=== PATIENT | male | born 1970 | race Caucasian/White ===

== ENCOUNTER 2024-06-14 15:15 | Emergency (ER) | payer BC ==
[2024-06-14 15:28] VITALS: RESP 18
--- NOTE | 2024-06-14 15:29 | ED ---
Wound/Laceration HPI - General Chief Complaint: Wound/Laceration Stated Complaint: Right arm injury Time Seen by Provider: 06/14/24 15:27 Source: patient, EMS, RN notes reviewed Mode of arrival: EMS Limitations: no limitations - History of Present Illness Initial Comments: 53-year-old presented to ER with a chief complaint of a laceration. Patient states he was cleaning his lawnmower and accidentally scraped his right wrist causing a laceration on one of the blades. Tetanus status unknown. He denies any blood thinning medications. He denies any limited range of motion, paresthesias or other injuries. He does report a mild burning sensation to the affected area. No other injuries or complaints. - Related Data Allergies Allergy/AdvReac Type Severity Reaction Status Date / Time adhesive AdvReac Rash/Hives Verified 06/14/24 15:19 Review of Systems ROS Statement: Those systems with pertinent positive or pertinent negative responses have been documented in the HPI. ROS Other: All systems not noted in ROS Statement are negative. Past Medical History Past Medical History: Hyperlipidemia, Hypertension Additional Past Surgical History / Comment(s): History of kidney stones with surgical intervention General Exam Limitations: no limitations General appearance: alert, in no apparent distress Respiratory exam: Present: normal lung sounds bilaterally. Absent: respiratory distress, wheezes, rales, rhonchi, stridor Cardiovascular Exam: Present: regular rate, normal rhythm, normal heart sounds. Absent: systolic murmur, diastolic murmur, rubs, gallop, clicks Extremities exam: Present: normal inspection, full ROM, normal capillary refill, other (2 cm laceration to right wrist overlying radial head. Patient has full active range of motion. Minimal active bleeding. 2+ right radial pulse.). Absent: tenderness, pedal edema, joint swelling, calf tenderness Neurological exam: Present: alert, oriented X3, CN II-XII intact Skin exam: Present: warm, dry, intact, normal color. Absent: rash Course Vital Signs 06/14/24 15:26 Temperature 98.8 F Pulse Rate 60 Respiratory 18 Rate Blood Pressure 160/91 O2 Sat by Pulse 98 Oximetry Procedures - Laceration Laceration #1 Consent Obtained: verbal consent Indication: laceration Site: upper extremity Size (cm): 2 Description: linear Depth: simple, single layer Anesthetic Used: lidocaine 1%, without epi Anesthesia Technique: local infiltration Amount (mls): 3 Pre-repair: wound explored, irrigated extensively, deep structures intact Type of Sutures: nylon Size of Sutures: 5-0 Number of Sutures: 3 Technique: simple, interrupted Patient Tolerated Procedure: well Medical Decision Making - Medical Decision Making Was pt. sent in by a medical professional or institution ([facility], INCIDENT RESPONSE COORDINATOR, urgent care, hospital, or penitentiary...) When possible be specific @ -No Did you speak to anyone other than the patient for history (EMS, parent, family, police, friend...)? What history was obtained from this source @ -No Did you review nursing and triage notes (agree or disagree)? Why? @ -I reviewed and agree with nursing and triage notes Were old charts reviewed (outside hosp., previous admission, EMS record, old EKG, old radiological studies, urgent care reports/EKG's, penitentiary records)? Report findings @ -No old charts were reviewed Differential Diagnosis (chest pain, altered mental status, abdominal pain women, abdominal pain men, vaginal bleeding, weakness, fever, dyspnea, syncope, headache, dizziness, GI bleed, back pain, seizure, CVA, palpatations, mental health, musculoskeletal)? @ -Laceration, abrasion, contusion, avulsion, foreign body this list is not meant to be all-inclusive EKG interpreted by me (3pts min.). @ -None done X-rays interpreted by me (1pt min.). @ -Right wrist x-ray negative for acute osseous process or radiopaque foreign body. CT interpreted by me (1pt min.). @ -None done U/S interpreted by me (1pt. min.). @ -None done What testing was considered but not performed or refused? (CT, X-rays, U/S, labs)? Why? @ -None What meds were considered but not given or refused? Why? @ -None Did you discuss the management of the patient with other professionals (professionals i.e. [employer], INCIDENT RESPONSE COORDINATOR, lab, RT, psych nurse, social security benefits interviewer, motor adjuster, teacher, security officers and guards, sample case porter)? Give summary @ -No Was smoking cessation discussed for >3mins.? @ -No Was critical care preformed (if so, how long)? @ -No Were there social determinants of health that impacted care today? How? (Homelessness, low income, unemployed, alcoholism, drug addiction, transportation, low edu. Level, literacy, decrease access to med. care, long term, rehab)? @ -No Was there de-escalation of care discussed even if they declined (Discuss DNR or withdrawal of care, Hospice)? DNR status @ -No What co-morbidities impacted this encounter? (DM, HTN, Smoking, COPD, CAD, Cancer, CVA, ARF, Chemo, Hep., AIDS, mental health diagnosis, sleep apnea, morbid obesity)? @ -None Was patient admitted / discharged? Hospital course, mention meds given and route, prescriptions, significant lab abnormalities, going to OR and other pertinent info. @ -Discharge. 53-year-old male presented to the ER via EMS with a chief complaint of laceration. History and physical exam completed. Vitals within normal limits. Patient in no signs of acute distress and nontoxic-appearing. Exam remarkable for a 2 cm laceration to right wrist overlying the radial head. No active bleeding. Patient has full active range of motion of digits. X-ray obtained negative for acute osseous process or radiopaque foreign bodies. Tetanus updated. Wound closed, see note above. Suture care discussed. I advised suture removal in 7 to 10 days. Return parameters discussed. Patient discharged in stable condition. Patient verbally expressed understanding agree with care plan. Case discussed with ED attending Dr. Cox. Undiagnosed new problem with uncertain prognosis? @ -No Drug Therapy requiring intensive monitoring for toxicity (Heparin, Nitro, Insulin, Cardizem)? @ -No Were any procedures done? @ -No Diagnosis/symptom? @ -Laceration Acute, or Chronic, or Acute on Chronic? @ -Acute Uncomplicated (without systemic symptoms) or Complicated (systemic symptoms)? @ -Uncomplicated Side effects of treatment? @ -No Exacerbation, Progression, or Severe Exacerbation? @ -No Poses a threat to life or bodily function? How? (Chest pain, USA, MD, pneumonia, PE, COPD, DKA, ARF, appy, cholecystitis, CVA, Diverticulitis, Homicidal, Suicidal, threat to staff... and all critical care pts) @ -No - Radiology Data Radiology results: report reviewed, image reviewed Disposition Clinical Impression: Laceration Disposition: HOME SELF-CARE Condition: Stable Instructions (If sedation given, give patient instructions): Care For Your Stitches (DC) Additional Instructions: Have sutures removed in 7 to 10 days. Keep area clean and dry. Monitor for signs of infection including surrounding redness, drainage or increase in pain and swelling. Return to the ER for any new or worsening concerns. Otherwise follow-up with primary care physician. Is patient prescribed a controlled substance at d/c from ED?: No Referrals: Rich Sifuentes DO [Primary Care Provider] - 1-2 days Time of Disposition: 16:22
--- NOTE | 2024-06-14 15:56 | XR ---
EXAMINATION TYPE: XR wrist complete RT DATE OF EXAM: 06/14/2024 3:34 PM CLINICAL INDICATION: Male, 53 years old with history of laceration; COMPARISON: None TECHNIQUE: XR wrist complete RT; examined in the Frontal, navicular, lateral, and oblique. FINDINGS: No acute osseous pathology, joint dislocation, or joint effusion. No evidence of any soft tissue swelling is seen. No radiopaque foreign body. Laceration skin defect along the anterior wrist. IMPRESSION: Soft tissue injury without evidence of fracture or radiopaque foreign body. [facility], , 06/14/2024 3:53 PM
[2024-06-14] MEDS: DIPH,PERTUS(ACELL)TETVAC-LF 0.5 ML VIAL IM ONE (16:32)
[2024-06-14] MEDS: LIDOCAINE 1% INJ 10MG/ML (20 ML MDV) SQ ONE (16:38)
[2024-06-14 16:45] VITALS: BP 154/89; PULSE 66; TEMP 98.4
== END 2024-06-14 16:45 | disposition home or self-care (01) ==
LOC: EC 15:15
CPT/HCPCS: 12001; 90471; 90715; 99283